=== PATIENT | male | born 1960 | race African-American/Black ===

== ENCOUNTER 2020-11-24 16:39 | Emergency (ER) | payer BC, SELFPAY ==
[2020-11-24] VITALS (7 sets, daily range): BP systolic 172–221; BP diastolic 82–117; PULSE 72–96; RESP 14–18; TEMP 36.3–37; O2SAT 97–100; BMI 33.5
--- NOTE | ~2020-11-24 | CT_ITS ---
EXAMINATION: CT HEAD WITHOUT CONTRAST CLINICAL INFORMATION: Headache. Vomiting. COMPARISON: CT head 04/17/2008 TECHNIQUE: Contiguous axial imaging was performed from the skull base to vertex without intravenous administration of contrast. Coronal and sagittal reformatted images are performed at CT scanner This CT examination was performed using dose optimization techniques as appropriate, variously including the following: *Automated exposure control *Adjustment of mA and/or kV according to patient size (this includes techniques or standardized protocols for targeted exams where dose is matched to indication/reason for exam; i.e. extremities or head) *Use of iterative reconstruction technique DLP: 669 mGy-cm FINDINGS: There is no evidence of acute intracranial hemorrhage or territorial infarction. No abnormal mass effect or midline shift is seen. Curran to white matter differentiation is well preserved. No extra-axial fluid collections are identified. The ventricles are normal in size. There is no abnormal attenuation within the brain parenchyma. The osseous structures and soft tissues are normal. Small volume of fluid layering dependently in the right sphenoid sinus. Mastoid air cells and middle ear cavities are normally aerated. CT/CT head/brain wo con IMPRESSION: No acute intracranial pathology.
--- NOTE | 2020-11-24 18:16 | ECG_ITS ---
Test Reason : HTN Blood Pressure : / mmHG Vent. Rate : 071 BPM Atrial Rate : 071 BPM P-R Int : 168 ms QRS Dur : 112 ms QT Int : 396 ms P-R-T Axes : 049 -18 019 degrees QTc Int : 430 ms Normal sinus rhythm Nonspecific T wave abnormality Abnormal ECG When compared with ECG of 10-MAY-2016 23:32, Nonspecific T wave abnormality now evident in Inferior leads Referred By: Kendy Chiu Electronically Signed By:AMAIRANI FLORES
--- NOTE | 2020-11-24 18:21 | ED.GENADULT ---
HPI - General Adult General Chief complaint: Nausea/Vomiting/Diarrhea <TRACI Aarna Last Filed: 11/24/20 21:14> Stated complaint: vomiting,dizzyness <TRACI Arana Last Filed: 11/24/20 21:14> Time Seen by Provider: 11/24/20 17:58 <Kendy Chiu NP - Last Filed: 11/24/20 21:14> Source: patient <TRACI Arana Last Filed: 11/24/20 21:14> Mode of arrival: ambulatory <TRACI Arana Last Filed: 11/24/20 21:14> Limitations: no limitations <TRACI Arana Last Filed: 11/24/20 21:14> History of Present Illness HPI narrative: 60-year-old male previously healthy here with complaints of vomiting and dizziness. The patient does move the last 2 days every time he eats he has vomiting with associated epigastric pain. He denies abdominal pain at this time. He denies associated diarrhea or constipation. No urinary symptoms. No fevers or chills. He is also complaining of feeling dizzy with position changes. He denies any headache, vision changes <TRACI Arana Last Filed: 11/24/20 21:14> Related Data Home medications: Previous Rx's Medication Instructions Recorded amlodipine 10 mg PO DAILY #30 tab 11/24/20 <TRACI Arana Last Filed: 11/24/20 21:14> Allergies/adverse reactions: Allergies Allergy/AdvReac Type Severity Reaction Status Date / Time No Known Allergies Allergy Verified 11/24/20 17:13 [No Known Allergies*] <TRACI Arana Last Filed: 11/24/20 21:14> Review of Systems Review of Systems: Yes all other systems are reviewed and are negative <TRACI Arana Last Filed: 11/24/20 21:14> Constitutional: Constitutional: Reports no additional constitutional complaints, Denies body ache(s), Denies chills, Denies fever(s), Denies headache(s) and Denies weakness <Kendy Chiu NP - Last Filed: 11/24/20 21:14> Eyes: Eyes: Reports no additional eye complaints and Denies change in vision <Kendy Chiu NP - Last Filed: 11/24/20 21:14> ENT: Reports system reviewed and no additional complaints, except as documented, Reports dizziness, Denies headache(s), Denies nasal congestion, Denies nasal discharge and Denies neck pain <Kendy Chiu CABLE TV INSTALLER - Last Filed: 11/24/20 21:14> Cardiovascular: Cardiovascular: Reports no additional cardiovascular complaints, Denies chest pain, Denies leg edema and Denies dyspnea <Kendy Chiu NP - Last Filed: 11/24/20 21:14> Respiratory: Respiratory: Reports no additional respiratory complaints, Denies cough and Denies dyspnea <Kendy Chiu CABLE TV INSTALLER - Last Filed: 11/24/20 21:14> Gastrointestinal: Gastrointestinal: Reports no additional gastrointestinal complaints, Denies abdominal pain, Denies diarrhea, Denies nausea and Reports vomiting <Kendy Chiu CABLE TV INSTALLER - Last Filed: 11/24/20 21:14> Genitourinary: Genitourinary: Denies urinary incontinence <Kendy Chiu NP - Last Filed: 11/24/20 21:14> Musculoskeletal: Musculoskeletal: Reports no additional musculoskeletal complaints, Denies back pain, Denies arthralgias, Denies joint swelling, Denies neck pain, Denies numbness and Denies tingling <Kendy Chiu CABLE TV INSTALLER - Last Filed: 11/24/20 21:14> Integumentary/Breasts: Skin/Breast: Reports system reviewed and no additional complaints, except as docu and Denies rash <Kendy Chiu CABLE TV INSTALLER - Last Filed: 11/24/20 21:14> Neurologic: Reports system reviewed and no additional complaints, except as documented, Denies Abnormal speech present, Reports dizziness, Denies headache(s), Denies numbness, Denies tingling and Denies weakness <Kendy Chiu NP - Last Filed: 11/24/20 21:14> PMFSH Past Medical History Attestation statement: The following information was validated with the patient. <Kendy Chiu NP - Last Filed: 11/24/20 21:14> Source: old records reviewed and nursing notes reviewed <Kendy Chiu NP - Last Filed: 11/24/20 21:14> Medical History: Medical History No known health problems <Kendy Chiu NP - Last Filed: 11/24/20 21:14> Social History Social History: Social History Advance Directives: No Advance Directives Information Provided: Yes <Kendy Chiu NP - Last Filed: 11/24/20 21:14> Physical Exam Vital Signs: Vital Signs: Last Vital Signs Temp 98.6 F 11/24/20 20:00 Pulse 75 11/24/20 20:25 Resp 16 11/24/20 20:00 BP 221/117 H 11/24/20 20:25 Pulse Ox 98 11/24/20 20:00 Body Mass Index 33.5 <Kendy Chiu NP - Last Filed: 11/24/20 21:14> Vital Signs: Last Vital Signs Temp 98.6 F 11/24/20 20:00 Pulse 75 11/24/20 20:25 Resp 16 11/24/20 20:00 BP 221/117 H 11/24/20 20:25 Pulse Ox 98 11/24/20 20:00 Body Mass Index 33.5 <Fernanda Stevenson MD - Last Filed: 11/24/20 22:42> Const: General: cooperative, healthy appearing, comfortable and no acute distress <Kendy Chiu NP - Last Filed: 11/24/20 21:14> Orientation/consciousness: patient oriented x3 <Kendy Chiu NP - Last Filed: 11/24/20 21:14> Limitations: no limitations <Kendy Chiu NP - Last Filed: 11/24/20 21:14> HENMT: Head: Yes normal to inspection <Kenyd Chiu NP - Last Filed: 11/24/20 21:14> Ears: hearing grossly normal bilaterally <Kendy Chiu CABLE TV INSTALLER - Last Filed: 11/24/20 21:14> General nose exam: Normal external nose present <Kendy Chiu CABLE TV INSTALLER - Last Filed: 11/24/20 21:14> Face and sinus: Yes normal facial exam <Kendy Chiu CABLE TV INSTALLER - Last Filed: 11/24/20 21:14> Mouth: Normal oral and palatal mucosa present <Kendy Chiu CABLE TV INSTALLER - Last Filed: 11/24/20 21:14> Throat: Yes posterior oropharynx normal <Kendy Chiu CABLE TV INSTALLER - Last Filed: 11/24/20 21:14> Eyes: General: appearance normal, both eyes and all related structures <Kendy Chiu CABLE TV INSTALLER - Last Filed: 11/24/20 21:14> Pupils: Equal, round and reactive pupils present <Kendy Chiu CABLE TV INSTALLER - Last Filed: 11/24/20 21:14> Neck: Neck: Yes normal visual inspection <Kendy Chiu CABLE TV INSTALLER - Last Filed: 11/24/20 21:14> Chest: Chest palpation & inspection: normal inspection of the chest <Kendy Chiu CABLE TV INSTALLER - Last Filed: 11/24/20 21:14> Resp: Effort & Inspection: normal respiratory effort <Kendy Chiu CABLE TV INSTALLER - Last Filed: 11/24/20 21:14> Auscultation: clear to auscultation bilaterally <Kendy Chiu CABLE TV INSTALLER - Last Filed: 11/24/20 21:14> Cardio: Rate: regular rate <Kendy Chiu CABLE TV INSTALLER - Last Filed: 11/24/20 21:14> Rhythm: regular rhythm <Kendy Chiu CABLE TV INSTALLER - Last Filed: 11/24/20 21:14> Peripheral pulses: Peripheral pulses 2+ throughout <Kendy Chiu CABLE TV INSTALLER - Last Filed: 11/24/20 21:14> GI: Inspection: Yes normal to inspection <Kendy Chiu CABLE TV INSTALLER - Last Filed: 11/24/20 21:14> Palpation (GI): Soft to palpation and nontender <Kendy Chiu NP - Last Filed: 11/24/20 21:14> Auscultation: normal bowel sounds <Kendy Chiu NP - Last Filed: 11/24/20 21:14> Back/Spine/Pelvis: Thoracic/Lumbar Spine: thoracic and lumbar spine normal to inspection <Kendy Chiu NP - Last Filed: 11/24/20 21:14> Skin: General skin exam: no rashes or lesions noted <Kendy Chiu NP - Last Filed: 11/24/20 21:14> Neuro: General: patient oriented x3, no focal motor deficits and normal sensation to monofilament <Kendy Chiu NP - Last Filed: 11/24/20 21:14> Cranial nerves: Yes CN's II-XII intact bilaterally, Yes Equal, round and reactive pupils present, Yes Bilaterally intact EOM present, Yes Nystagmus not present, Yes Normal facial strength present, Yes Midline tongue present and Yes Normal gag reflex present <Kendy Chiu NP - Last Filed: 11/24/20 21:14> Cognition (Neuro): normal cognition <Kendy Chiu CABLE TV INSTALLER - Last Filed: 11/24/20 21:14> Speech: No Abnormal speech present <Kendy Chiu NP - Last Filed: 11/24/20 21:14> Gait exam (Neuro): Normal gait present <Kendy Chiu NP - Last Filed: 11/24/20 21:14> Motor exam (neuro): 5/5 motor strength present throughout <Kendy Chiu CABLE TV INSTALLER - Last Filed: 11/24/20 21:14> Sensory Exam: Normal double simultaneous stimulation for sensation <Kendy Chiu NP - Last Filed: 11/24/20 21:14> Coordination: [id number] test normal and [id number] test normal <Kendy Chiu NP - Last Filed: 11/24/20 21:14> Extrem: General: Yes normal to inspection <Kendy Chiu NP - Last Filed: 11/24/20 21:14> NIH Stroke Scale Internal: Initial- Upon Arrival <Kendy Chiu NP - Last Filed: 11/24/20 21:14> Level of Consciousness: Alert <Kendy Chiu NP - Last Filed: 11/24/20 21:14> Level of Consciousness Questions: Answers both questions correctly <Kendy Chiu NP - Last Filed: 11/24/20 21:14> Level of Consciousness Commands: Performs both tasks correctly <Kendy Chiu NP - Last Filed: 11/24/20 21:14> Best Gaze: Normal <Kendy Chiu NP - Last Filed: 11/24/20 21:14> Facial Palsy: Normal <Kendy Chiu NP - Last Filed: 11/24/20 21:14> Motor Arm (Right): No drift <Kendy Chiu NP - Last Filed: 11/24/20 21:14> Motor Arm (Left): No drift <Kendy Chiu NP - Last Filed: 11/24/20 21:14> Motor Leg (Right): No drift <Kendy Chiu NP - Last Filed: 11/24/20 21:14> Motor Leg (Left): No drift <Kendy Chiu NP - Last Filed: 11/24/20 21:14> Limb Ataxia: Absent <Kendy Chiu NP - Last Filed: 11/24/20 21:14> Sensory: Normal <Kendy Chiu NP - Last Filed: 11/24/20 21:14> Best Language: No aphasia <Kendy Chiu NP - Last Filed: 11/24/20 21:14> Dysarthia: Normal <Kendy Chiu NP - Last Filed: 11/24/20 21:14> Extinction and Inattention: No abnormality <Kendy Chiu NP - Last Filed: 11/24/20 21:14> Course Course Course Narrative: 60-year-old male here with complaints of vomiting with dizziness x2 days. Mild hypertension on arrival. Denies history of same. No headache. No other abdominal symptoms. Hemodynamically stable. Normal neuro exam. Will check labs, UA, EKG, orthostatic vital signs. 2015-orthostatics have a 20 point increase in HR. Blood pressure increased however. Patient is significantly hypertensive. Will give labetalol and Norvasc and reassess. Due to symptoms as well as hypertension will check CT head to rule out ICH. 2100-CT head negative. UA pending. Initial troponin mildly elevated, plan for repeat 3 hr. Patient is feeling much improved. Blood pressure trending down. Denies nausea/vomiting/dizziness. Walks to the bathroom with a steady gait independently. ?hypertension related. Sign out to Dr Stevenson pending above. <Kendy Chiu NP - Last Filed: 11/24/20 21:14> I received sign-out from nurse practitioner Apple, patient's blood pressure 170 systolic, patient is asymptomatic, not having any chest pain, no shortness of breath, no longer vomiting feeling nauseous. Second troponin similar to the 1st 1, less than delta 50%, EKG done at 756pm shows normal sinus rhythm, no ST segment depressions or elevations. Patient will be started on amlodipine. Patient does not have a primary care physician. Patient was given information to start an appointment. I discussed with the patient the side effects of amlodipine including bilateral leg swelling. I discussed with the patient that if he has any side effects or questions, he can return to the emergency room for evaluation while he is waiting to get an appointment with a primary care physician. Patient was provided with information to call a primary care physician in [facility] <Fernanda Stevenson MD - Last Filed: 11/24/20 22:42> Medical Decision Making MDM Narrative Medical decision making narrative: ICH vs lesion, abdominal pathology, orthostatic hypotension, electrolyte abnormality, hypertensive crisis <Kendy Chui NP - Last Filed: 11/24/20 21:14> Lab Data Result diagrams: : 11/24/20 18:45 11/24/20 18:45 <Kendy Chiu NP - Last Filed: 11/24/20 21:14> Labs: Lab Results 11/24/20 11/24/20 11/24/20 Range/Units 18:45 18:45 18:45 WBC 4.4 L (4.8-10.8) X10*3/uL RBC 4.49 L (4.60-5.80) X10*6/uL Hgb 13.3 L (14.0-18.0) g/dl Hct 39.6 L (42-52) % MCV 88.2 (80-98) fL MCH 29.6 (27.0-33.0) pg MCHC 33.6 (31.0-36.0) g/dl RDW 13.0 (11.0-16.0) % Plt Count 202 (160-400) X10*3/uL MPV 9.5 (9.4-12.4) fL Immature Gran % (Auto) 0.2 (0.0-0.4) % Neut % (Auto) 77.8 H (45-73) % Lymph % (Auto) 15.2 L (20-40) % [place] % (Auto) 6.4 (2-11) % Eos % (Auto) 0.2 (0-4) % Baso % (Auto) 0.2 (0-2) % Lymph # (Auto) 0.7 L (1.2-4.9) X10*3/uL [place] # (Auto) 0.3 (0.1-1.2) X10*3/uL Eos # (Auto) 0.0 (0.0-0.4) X10*3/uL Baso # (Auto) 0.0 (0.0-0.2) X10*3/uL Abs Immat Gran (auto) 0.01 (0.00-0.03) X10*3/uL Absolute Neuts (auto) 3.4 (2.0-8.3) X10*3/uL Absolute Nucleated RBC 0.000 (0.0-0.012) X10*3/uL Nucleated RBC % (auto) 0.0 (0.0-0.2) /100WBC Smear Tech's Comments VERIFIED PT 14.2 H (10.8-13.0) SEC INR 1.2 H (0.9-1.1) Sodium 139 (135-145) mmol/L Potassium 4.1 (3.3-5.1) mmol/L Chloride 103 (96-108) mmol/L Carbon Dioxide 26 (22-29) mmol/L Anion Gap 14 (12-20) BUN 13 (9-16) mg/dL Creatinine 0.89 (0.5-1.4) mg/dL Estim Creat Clear Calc 113.5 Estimated GFR > 60 Random Glucose 129 H (60-115) mg/dL Calcium 9.4 (8.4-10.2) mg/dL Magnesium 2.3 (1.6-2.6) mg/dL Total Bilirubin 1.2 H (0.0-1.0) mg/dL Direct Bilirubin 0.4 (0.0-0.5) mg/dL AST 30 (5-37) U/L ALT 23 (0-40) U/L Alkaline Phosphatase 66 (39-117) U/L Troponin I High Sens (<3.5-35.0) ng/L Total Protein 8.2 H (6.5-8.0) g/dL Albumin 4.5 (3.5-5.0) g/dL Urine Color Urine Appearance Urine pH (5.0-8.0) Ur Specific [place] (1.005-1.025) Urine Protein (NEG-TRACE) MG/DL Urine Glucose (UA) (NEG) MG/DL Urine Ketones (NEG) MG/DL Urine Blood (NEG) Urine Nitrite (NEG) Ur Leukocyte Esterase (NEG) COVID-19 ([facility]) (Negative) COVID-19 Clin Com 11/24/20 11/24/20 11/24/20 Range/Units 18:45 19:27 21:20 WBC (4.8-10.8) X10*3/uL RBC (4.60-5.80) X10*6/uL Hgb (14.0-18.0) g/dl Hct (42-52) % MCV (80-98) fL MCH (27.0-33.0) pg MCHC (31.0-36.0) g/dl RDW (11.0-16.0) % Plt Count (160-400) X10*3/uL MPV (9.4-12.4) fL Immature Gran % (Auto) (0.0-0.4) % Neut % (Auto) (45-73) % Lymph % (Auto) (20-40) % [place] % (Auto) (2-11) % Eos % (Auto) (0-4) % Baso % (Auto) (0-2) % Lymph # (Auto) (1.2-4.9) X10*3/uL [place] # (Auto) (0.1-1.2) X10*3/uL Eos # (Auto) (0.0-0.4) X10*3/uL Baso # (Auto) (0.0-0.2) X10*3/uL Abs Immat Gran (auto) (0.00-0.03) X10*3/uL Absolute Neuts (auto) (2.0-8.3) X10*3/uL Absolute Nucleated RBC (0.0-0.012) X10*3/uL Nucleated RBC % (auto) (0.0-0.2) /100WBC Smear Tech's Comments PT (10.8-13.0) SEC INR (0.9-1.1) Sodium (135-145) mmol/L Potassium (3.3-5.1) mmol/L Chloride (96-108) mmol/L Carbon Dioxide (22-29) mmol/L Anion Gap (12-20) BUN (9-16) mg/dL Creatinine (0.5-1.4) mg/dL Estim Creat Clear Calc Estimated GFR Random Glucose (60-115) mg/dL Calcium (8.4-10.2) mg/dL Magnesium (1.6-2.6) mg/dL Total Bilirubin (0.0-1.0) mg/dL Direct Bilirubin (0.0-0.5) mg/dL AST (5-37) U/L ALT (0-40) U/L Alkaline Phosphatase (39-117) U/L Troponin I High Sens 4.5 (<3.5-35.0) ng/L Total Protein (6.5-8.0) g/dL Albumin (3.5-5.0) g/dL Urine Color YELLOW Urine Appearance CLEAR Urine pH 6.5 (5.0-8.0) Ur Specific [place] >= 1.030 H (1.005-1.025) Urine Protein TRACE (NEG-TRACE) MG/DL Urine Glucose (UA) NEG (NEG) MG/DL Urine Ketones 15 (NEG) MG/DL Urine Blood NEG (NEG) Urine Nitrite NEG (NEG) Ur Leukocyte Esterase NEG (NEG) COVID-19 ([facility]) Negative (Negative) COVID-19 Clin Com See Note 11/24/20 Range/Units 21:43 WBC (4.8-10.8) X10*3/uL RBC (4.60-5.80) X10*6/uL Hgb (14.0-18.0) g/dl Hct (42-52) % MCV (80-98) fL MCH (27.0-33.0) pg MCHC (31.0-36.0) g/dl RDW (11.0-16.0) % Plt Count (160-400) X10*3/uL MPV (9.4-12.4) fL Immature Gran % (Auto) (0.0-0.4) % Neut % (Auto) (45-73) % Lymph % (Auto) (20-40) % [place] % (Auto) (2-11) % Eos % (Auto) (0-4) % Baso % (Auto) (0-2) % Lymph # (Auto) (1.2-4.9) X10*3/uL [place] # (Auto) (0.1-1.2) X10*3/uL Eos # (Auto) (0.0-0.4) X10*3/uL Baso # (Auto) (0.0-0.2) X10*3/uL Abs Immat Gran (auto) (0.00-0.03) X10*3/uL Absolute Neuts (auto) (2.0-8.3) X10*3/uL Absolute Nucleated RBC (0.0-0.012) X10*3/uL Nucleated RBC % (auto) (0.0-0.2) /100WBC Smear Tech's Comments PT (10.8-13.0) SEC INR (0.9-1.1) Sodium (135-145) mmol/L Potassium (3.3-5.1) mmol/L Chloride (96-108) mmol/L Carbon Dioxide (22-29) mmol/L Anion Gap (12-20) BUN (9-16) mg/dL Creatinine (0.5-1.4) mg/dL Estim Creat Clear Calc Estimated GFR Random Glucose (60-115) mg/dL Calcium (8.4-10.2) mg/dL Magnesium (1.6-2.6) mg/dL Total Bilirubin (0.0-1.0) mg/dL Direct Bilirubin (0.0-0.5) mg/dL AST (5-37) U/L ALT (0-40) U/L Alkaline Phosphatase (39-117) U/L Troponin I High Sens 4.6 (<3.5-35.0) ng/L Total Protein (6.5-8.0) g/dL Albumin (3.5-5.0) g/dL Urine Color Urine Appearance Urine pH (5.0-8.0) Ur Specific [place] (1.005-1.025) Urine Protein (NEG-TRACE) MG/DL Urine Glucose (UA) (NEG) MG/DL Urine Ketones (NEG) MG/DL Urine Blood (NEG) Urine Nitrite (NEG) Ur Leukocyte Esterase (NEG) COVID-19 ([facility]) (Negative) COVID-19 Clin Com <Kendy Chiu NP - Last Filed: 11/24/20 21:14> Lab Results 11/24/20 11/24/20 11/24/20 Range/Units 18:45 18:45 18:45 WBC 4.4 L (4.8-10.8) X10*3/uL RBC 4.49 L (4.60-5.80) X10*6/uL Hgb 13.3 L (14.0-18.0) g/dl Hct 39.6 L (42-52) % MCV 88.2 (80-98) fL MCH 29.6 (27.0-33.0) pg MCHC 33.6 (31.0-36.0) g/dl RDW 13.0 (11.0-16.0) % Plt Count 202 (160-400) X10*3/uL MPV 9.5 (9.4-12.4) fL Immature Gran % (Auto) 0.2 (0.0-0.4) % Neut % (Auto) 77.8 H (45-73) % Lymph % (Auto) 15.2 L (20-40) % [place] % (Auto) 6.4 (2-11) % Eos % (Auto) 0.2 (0-4) % Baso % (Auto) 0.2 (0-2) % Lymph # (Auto) 0.7 L (1.2-4.9) X10*3/uL [place] # (Auto) 0.3 (0.1-1.2) X10*3/uL Eos # (Auto) 0.0 (0.0-0.4) X10*3/uL Baso # (Auto) 0.0 (0.0-0.2) X10*3/uL Abs Immat Gran (auto) 0.01 (0.00-0.03) X10*3/uL Absolute Neuts (auto) 3.4 (2.0-8.3) X10*3/uL Absolute Nucleated RBC 0.000 (0.0-0.012) X10*3/uL Nucleated RBC % (auto) 0.0 (0.0-0.2) /100WBC Smear Tech's Comments VERIFIED PT 14.2 H (10.8-13.0) SEC INR 1.2 H (0.9-1.1) Sodium 139 (135-145) mmol/L Potassium 4.1 (3.3-5.1) mmol/L Chloride 103 (96-108) mmol/L Carbon Dioxide 26 (22-29) mmol/L Anion Gap 14 (12-20) BUN 13 (9-16) mg/dL Creatinine 0.89 (0.5-1.4) mg/dL Estim Creat Clear Calc 113.5 Estimated GFR > 60 Random Glucose 129 H (60-115) mg/dL Calcium 9.4 (8.4-10.2) mg/dL Magnesium 2.3 (1.6-2.6) mg/dL Total Bilirubin 1.2 H (0.0-1.0) mg/dL Direct Bilirubin 0.4 (0.0-0.5) mg/dL AST 30 (5-37) U/L ALT 23 (0-40) U/L Alkaline Phosphatase 66 (39-117) U/L Troponin I High Sens (<3.5-35.0) ng/L Total Protein 8.2 H (6.5-8.0) g/dL Albumin 4.5 (3.5-5.0) g/dL Urine Color Urine Appearance Urine pH (5.0-8.0) Ur Specific [place] (1.005-1.025) Urine Protein (NEG-TRACE) MG/DL Urine Glucose (UA) (NEG) MG/DL Urine Ketones (NEG) MG/DL Urine Blood (NEG) Urine Nitrite (NEG) Ur Leukocyte Esterase (NEG) COVID-19 ([facility]) (Negative) COVID-19 Clin Com 11/24/20 11/24/20 11/24/20 Range/Units 18:45 19:27 21:20 WBC (4.8-10.8) X10*3/uL RBC (4.60-5.80) X10*6/uL Hgb (14.0-18.0) g/dl Hct (42-52) % MCV (80-98) fL MCH (27.0-33.0) pg MCHC (31.0-36.0) g/dl RDW (11.0-16.0) % Plt Count (160-400) X10*3/uL MPV (9.4-12.4) fL Immature Gran % (Auto) (0.0-0.4) % Neut % (Auto) (45-73) % Lymph % (Auto) (20-40) % [place] % (Auto) (2-11) % Eos % (Auto) (0-4) % Baso % (Auto) (0-2) % Lymph # (Auto) (1.2-4.9) X10*3/uL [place] # (Auto) (0.1-1.2) X10*3/uL Eos # (Auto) (0.0-0.4) X10*3/uL Baso # (Auto) (0.0-0.2) X10*3/uL Abs Immat Gran (auto) (0.00-0.03) X10*3/uL Absolute Neuts (auto) (2.0-8.3) X10*3/uL Absolute Nucleated RBC (0.0-0.012) X10*3/uL Nucleated RBC % (auto) (0.0-0.2) /100WBC Smear Tech's Comments PT (10.8-13.0) SEC INR (0.9-1.1) Sodium (135-145) mmol/L Potassium (3.3-5.1) mmol/L Chloride (96-108) mmol/L Carbon Dioxide (22-29) mmol/L Anion Gap (12-20) BUN (9-16) mg/dL Creatinine (0.5-1.4) mg/dL Estim Creat Clear Calc Estimated GFR Random Glucose (60-115) mg/dL Calcium (8.4-10.2) mg/dL Magnesium (1.6-2.6) mg/dL Total Bilirubin (0.0-1.0) mg/dL Direct Bilirubin (0.0-0.5) mg/dL AST (5-37) U/L ALT (0-40) U/L Alkaline Phosphatase (39-117) U/L Troponin I High Sens 4.5 (<3.5-35.0) ng/L Total Protein (6.5-8.0) g/dL Albumin (3.5-5.0) g/dL Urine Color YELLOW Urine Appearance CLEAR Urine pH 6.5 (5.0-8.0) Ur Specific [place] >= 1.030 H (1.005-1.025) Urine Protein TRACE (NEG-TRACE) MG/DL Urine Glucose (UA) NEG (NEG) MG/DL Urine Ketones 15 (NEG) MG/DL Urine Blood NEG (NEG) Urine Nitrite NEG (NEG) Ur Leukocyte Esterase NEG (NEG) COVID-19 ([facility]) Negative (Negative) COVID-19 Clin Com See Note 11/24/20 Range/Units 21:43 WBC (4.8-10.8) X10*3/uL RBC (4.60-5.80) X10*6/uL Hgb (14.0-18.0) g/dl Hct (42-52) % MCV (80-98) fL MCH (27.0-33.0) pg MCHC (31.0-36.0) g/dl RDW (11.0-16.0) % Plt Count (160-400) X10*3/uL MPV (9.4-12.4) fL Immature Gran % (Auto) (0.0-0.4) % Neut % (Auto) (45-73) % Lymph % (Auto) (20-40) % [place] % (Auto) (2-11) % Eos % (Auto) (0-4) % Baso % (Auto) (0-2) % Lymph # (Auto) (1.2-4.9) X10*3/uL [place] # (Auto) (0.1-1.2) X10*3/uL Eos # (Auto) (0.0-0.4) X10*3/uL Baso # (Auto) (0.0-0.2) X10*3/uL Abs Immat Gran (auto) (0.00-0.03) X10*3/uL Absolute Neuts (auto) (2.0-8.3) X10*3/uL Absolute Nucleated RBC (0.0-0.012) X10*3/uL Nucleated RBC % (auto) (0.0-0.2) /100WBC Smear Tech's Comments PT (10.8-13.0) SEC INR (0.9-1.1) Sodium (135-145) mmol/L Potassium (3.3-5.1) mmol/L Chloride (96-108) mmol/L Carbon Dioxide (22-29) mmol/L Anion Gap (12-20) BUN (9-16) mg/dL Creatinine (0.5-1.4) mg/dL Estim Creat Clear Calc Estimated GFR Random Glucose (60-115) mg/dL Calcium (8.4-10.2) mg/dL Magnesium (1.6-2.6) mg/dL Total Bilirubin (0.0-1.0) mg/dL Direct Bilirubin (0.0-0.5) mg/dL AST (5-37) U/L ALT (0-40) U/L Alkaline Phosphatase (39-117) U/L Troponin I High Sens 4.6 (<3.5-35.0) ng/L Total Protein (6.5-8.0) g/dL Albumin (3.5-5.0) g/dL Urine Color Urine Appearance Urine pH (5.0-8.0) Ur Specific [place] (1.005-1.025) Urine Protein (NEG-TRACE) MG/DL Urine Glucose (UA) (NEG) MG/DL Urine Ketones (NEG) MG/DL Urine Blood (NEG) Urine Nitrite (NEG) Ur Leukocyte Esterase (NEG) COVID-19 ([facility]) (Negative) COVID-19 Clin Com <Fernanda Stevenson, MD - Last Filed: 11/24/20 22:42> Imaging Data CT scan - head: Attestation: I personally reviewed and interpreted this imaging study as follows: <Kendy Chiu NP - Last Filed: 11/24/20 21:14> Radiologist's impression: EXAMINATION: CT HEAD WITHOUT CONTRAST CLINICAL INFORMATION: Headache. Vomiting. COMPARISON: CT head 04/17/2008 TECHNIQUE: Contiguous axial imaging was performed from the skull base to vertex without intravenous administration of contrast. Coronal and sagittal reformatted images are performed at CT scanner This CT examination was performed using dose optimization techniques as appropriate, variously including the following: *Automated exposure control *Adjustment of mA and/or kV according to patient size (this includes techniques or standardized protocols for targeted exams where dose is matched to indication/reason for exam; i.e. extremities or head) *Use of iterative reconstruction technique DLP: 669 mGy-cm FINDINGS: There is no evidence of acute intracranial hemorrhage or territorial infarction. No abnormal mass effect or midline shift is seen. Curran to white matter differentiation is well preserved. No extra-axial fluid collections are identified. The ventricles are normal in size. There is no abnormal attenuation within the brain parenchyma. The osseous structures and soft tissues are normal. Small volume of fluid layering dependently in the right sphenoid sinus. Mastoid air cells and middle ear cavities are normally aerated. CT/CT head/brain wo con IMPRESSION: No acute intracranial pathology. <Kendy Chiu NP - Last Filed: 11/24/20 21:14> ECG Data Attestation: I personally reviewed and interpreted this ECG as follows: <Kendy Chiu NP - Last Filed: 11/24/20 21:14> Interpretation: NSR, normal pr, normal qrs, normal qtc, nonspecific ST changes <Kendy Chiu NP - Last Filed: 11/24/20 21:14> Discharge Plan Discharge Clinical Impression: Hypertension, Nausea & vomiting <Kendy Chiu NP - Last Filed: 11/24/20 21:14> Patient Disposition: Home, Self-Care <Kendy Chiu NP - Last Filed: 11/24/20 21:14> Instructions: Acute Nausea and Vomiting (ED), Hypertension (ED) <Kendy Chiu NP - Last Filed: 11/24/20 21:14> Additional Instructions: Please call a new primary care physician to schedule an appointment, establish care, and follow-up for hypertension. If you have any side effects with your new medications, please return to the emergency room. If you have any worsening or new symptoms, please return to the emergency room or call 911 <Kendy Chiu NP - Last Filed: 11/24/20 21:14> Prescriptions: New amlodipine 10 mg tablet 10 mg PO DAILY Qty: 30 RF: 1 <Kendy Chiu NP - Last Filed: 11/24/20 21:14>
[2020-11-24] MEDS: 0.9 % Sodium Chloride 1,000 ML 999 ML IVCONT ×2 (18:48→19:36)
[2020-11-24] MEDS: ondansetron HCL 4 MG/2 ML VIAL IVPUSH (18:48)
[2020-11-24 18:52] LABS: Basophils Percent Auto 0.2 % (0-2); Eosinophils Percent Auto 0.2 % (0-4); Hematocrit 39.6 % (42-52); Hemoglobin 13.3 g/dl (14.0-18.0); Imm Gran Abs Auto 0.01 X10*3/uL (0.00-0.03); Imm Gran Pct Auto 0.2 % (0.0-0.4); Lymphocytes Absolute Auto 0.7 X10*3/uL (1.2-4.9); Lymphocytes Percent Auto 15.2 % (20-40); MANUAL DIFF FLAG SCAN; Mean Corpuscular HGB Conc 33.6 g/dl (31.0-36.0); Mean Corpuscular Hemoglobin 29.6 pg (27.0-33.0); Mean Corpuscular Volume 88.2 fL (80-98); Mean Platelet Volume 9.5 fL (9.4-12.4); Monocytes Absolute Auto 0.3 X10*3/uL (0.1-1.2); Monocytes Percent Auto 6.4 % (2-11); Neutrophils Absolute Auto 3.4 X10*3/uL (2.0-8.3); Neutrophils Percent Auto 77.8 % (45-73); Platelet Count 202 X10*3/uL (160-400); Red Blood Count 4.49 X10*6/uL (4.60-5.80); SCAN SMEAR FLAG 1; White Blood Count 4.4 X10*3/uL (4.8-10.8)
[2020-11-24 18:57] LABS: INTERNATIONAL NORM RATIO 1.2 (0.9-1.1); Prothrombin Time 14.2 SEC (10.8-13.0)
[2020-11-24 19:12] LABS: Alanine Aminotransferase 23 U/L (0-40); Albumin Level 4.5 g/dL (3.5-5.0); Alkaline Phosphatase 66 U/L (39-117); Anion Gap 14 (12-20); Aspartate Amino Transferase 30 U/L (5-37); Bilirubin Direct 0.4 mg/dL (0.0-0.5); Bilirubin Total 1.2 mg/dL (0.0-1.0); Blood Urea Nitrogen 13 mg/dL (9-16); Calcium 9.4 mg/dL (8.4-10.2); Carbon Dioxide 26 mmol/L (22-29); Chloride 103 mmol/L (96-108); Creatinine Clr Calc Pharmacy 113.5; Estimated Glomerular Filt Rate > 60; Glucose Random 129 mg/dL (60-115); Magnesium 2.3 mg/dL (1.6-2.6); Potassium 4.1 mmol/L (3.3-5.1); Sodium 139 mmol/L (135-145); Total Protein 8.2 g/dL (6.5-8.0)
[2020-11-24 19:15] LABS: Troponin-I High Sensitivity 4.5 ng/L (<3.5-35.0)
[2020-11-24 19:54] LABS: SLIDE REVIEW VERIFIED
[2020-11-24 19:59] LABS: COVID-19 Test Negative (Negative); IDNOW Serial# 9DD0AD1C
[2020-11-24] MEDS: amLODIPine Besylate 10 MG TABLET PO (20:24)
[2020-11-24] MEDS: Labetalol HCL 100 MG/20 ML VIAL 10 MG IVPUSH (20:25)
[2020-11-24 21:35] LABS: Glucose Urine UA NEG (NEG); Leukocyte Esterase Urine NEG (NEG); Nitrite Urine NEG (NEG); PH 6.5 (5.0-8.0); Specific Gravity - Urine >= 1.030 (1.005-1.025); Urine Blood NEG (NEG); Urine Ketones 15 MG/DL (NEG); Urine Protein TRACE MG/DL (NEG-TRACE)
[2020-11-24 21:36] LABS: Appearance Urine CLEAR; Color Urine YELLOW
[2020-11-24 22:12] LABS: Troponin-I High Sensitivity 4.6 ng/L (<3.5-35.0)
--- NOTE | 2020-11-24 22:51 | PC.NURSE ---
MD IN ROOM TO SPEAK WITH PT REGARDIG DISCHARGE. IV REMOVED INTACT.
== END 2020-11-24 22:55 | disposition home or self-care (01) ==
PROVIDERS: Nurse Practitioner Family; Emergency Provider Emergency Medicine
DX: R11.2 Nausea with vomiting, unspecified (principal); I10 Essential (primary) hypertension; Z20.822 Contact with and (suspected) exposure to COVID-19; R10.13 Epigastric pain
CPT/HCPCS: 36415; 70450; 80048; 80076; 81003; 83735; 84484; 85025; 85610; 87635; 93005; 96361; 96374; 96375; 99284; J2405